=== PATIENT | female | born 2000 ===

== ENCOUNTER → 2022-09-29 13:10 | Outpatient (CLI) | payer OTHER, SELFPAY ==
--- NOTE | ~2022-09-29 | US_ITS ---
US breast LT complete DATE: 09/29/2022 13:40 INDICATION: Left breast lump TECHNIQUE: Real-time and color flow imaging targeted at area of left breast lump at 4:00 4 cm from ni pple COMPARISON: None FINDINGS: At 4:00 4 cm from the nipple at the area of a palpable lump there is a parallel circumscrib ed mildly heterogeneous mixed isoechoic/hyperechoic lesion measuring up to 1.8 x 1 x 0.76 mm dimensio n, with smooth regular margins and posterior enhancement. The sonographic features are benign. Differ ential diagnosis includes lipoma, hamartoma, fibroadenoma. IMPRESSION: BI-RADS Category 2: Benign Parallel circumscribed mixed isoechoic/hyperechoic 7.6 x 10 x 18 mm lesion with through transmission, benign in appearance sonographically. Differential diagnosis includes lipoma, hamartoma, fibroadenoma Reviewed, dictated and finalized at [facility]. Reviewed, dictated and finalized at [facility].
== END ==
PROVIDERS: PCP Obstetrics & Gynecology; Visit Provider Obstetrics & Gynecology
DX: N63.23 Unspecified lump in the left breast, lower outer quadrant (principal)
CPT/HCPCS: 76641